=== PATIENT | female | born 1985 | race Caucasian/White ===

== ENCOUNTER 2022-09-04 19:19 | Emergency (ER) | payer OTHER ==
[~2022-09-04] VITALS: Ht 157.5 cm; Wt 95.0 kg
[~2022-09-04 19:19] MED LIST: NORCO 5-325 TA1 EACH PO; XULANE PATCH1 EACH TD
[2022-09-04] MEDS ORDERED: LOMOTIL TABLET1 EACH PO (21:34)
[2022-09-04] MEDS ORDERED: ONDANSETRON ODT8 MG PO (21:34)
== END 2022-09-04 22:11 | disposition home or self-care (01) ==
LOC: ED 19:19
DX: K52.9 Noninfective gastroenteritis and colitis, unspecified (principal); Z88.0 Allergy status to penicillin; Z20.822 Contact with and (suspected) exposure to COVID-19
CPT/HCPCS: 36415; 74177; 80053; 81001; 83690; 84703; 85025; 87502; 99284-25; A9270; Q9967; U0003